=== PATIENT | female | born 1955 | race Caucasian/White ===

== ENCOUNTER → 2017-02-26 | Day surgery (SDC) | payer OTHER ==
[~2017-02-26] MED LIST: ACETAMINOPHEN/HYDROcodone 325 MG/5 MG TAB ONE; BUPIVACAINE HCL PF 0.25% 30 ML VIAL ONE; BUPIVACAINE HCL PF 0.5% 10 ML VIAL ONE; KETOROLAC TROMETHAMINE 30 MG/ML (IVP) VIAL IV PUSH ONE; LACTATED RINGER'S 1000 ML INJ 1,000 ML ONE; MIDAZOLAM HCL 2 MG/2 ML VIAL ONE; ONDANSETRON HCL 4 MG/2 ML VIAL IV PUSH ONE; PROPOFOL 200 MG/20 ML AMP IV ONE; ceFAZolin 2 GM PREMIX 50 ML ONE
--- NOTE | 2017-02-26 14:14 | RADRPT ---
EXAM DATE/TIME: 02/26/2017 12:46 [place] COMPARISON: No previous studies available for comparison. INDICATIONS : 1ST metatarsal osteotomy. MEDICAL HISTORY : Unobtainable. SURGICAL HISTORY : Unobtainable. ENCOUNTER: Initial ACUITY: 1 day PAIN SCORE: Non-responsive. LOCATION: Left foot. FINDINGS: Two view examination of the left foot demonstrates good position and alignment of the bony structures of the first metatarsal status post surgery. There are [address] screws in place. There is good alignment at the joint.. CONCLUSION: Good position and alignment on this postoperative study. Sahil Damon MD on February 26, 2017 at 14:12 Board Certified Radiologist. This report was verified electronically.
--- NOTE | 2017-02-28 08:14 | MP ---
cc: JAYSON GRIFFIN [facility] DATE OF SURGERY 02/26/2017 PREOPERATIVE DIAGNOSIS Left foot hallux abductovalgus, painful bunion POSTOPERATIVE DIAGNOSIS Left foot hallux abductovalgus, painful bunion PROCEDURES PERFORMED Left first metatarsal osteotomy with screw fixation. SPECIMEN None ESTIMATED BLOOD LOSS Less than 30 mL MATERIALS USED X2 screws [employer] cannulated Dart-Fire 1 x 3.01 x 2.5, a 3.0 was 16 mm in length and the 2.5 was 14 mm in length. SPECIMEN None ESTIMATED BLOOD LOSS 13 mL COMPLICATIONS None ANESTHESIA General with local 0.25% Marcaine plain 25 cc infiltrated at the time of surgery. DRAINS None TOURNIQUET TIME 40 minutes at a setting of 215 mmHg PLAN OF ACTIVITY PACU then DC home once stable per same-day surgery criteria. JUSTIFICATION FOR THE PROCEDURE This is a pleasant 61 old female with worsening bunion and foot pain, inability to wear normal shoe gear and exercise. She exhausted conservative measures and wished to move forward with surgical intervention. The patient was educated on the reasonable healing time, as well as risks and benefits. PROCEDURE IN DETAIL Under mild sedation, the patient was brought into the operating room, placed on the operating table in the supine position. Following the induction of general anesthesia, local anesthesia was obtained about the forefoot utilizing standard block fashion. The left foot was then scrubbed, prepped and draped in the usual aseptic fashion. The left foot was elevated, exsanguinated and the previously placed mid ankle tourniquet was inflated at 215 mmHg. A linear incision was made on the dorsal aspect of the first MPJ slightly medial to the extensor hallucis longus tendon. Sharp and blunt dissection was carried down deep to the neurovascular bundle, but superficial to the first MPJ joint capsule. The level of the first interspace was identified. A McGlamry elevator was introduced deep into the first MPJ freeing up all plantar and lateral contractures of the first MPJ. Sharp and blunt dissection was carried down to the level of the fibular suspensory ligament and the level of the lateral conjoined tendon of the first MPJ. This was then severed freeing up lateral contractures. Next, a medial L-shaped capsulotomy was performed and an offset V osteotomy was performed translating the capital fragment medially 4 mm and fixated utilizing x2 Dart-Fire [employer] screws, one being 3.0, 16 mm in length, one being 2.5, 14 mm in length. The bunion and the redundant shelf was then transected to a smooth contour. The cartilaginous surface was examined and there was noted to be minimal arthritic changes with no signs of osteochondral lesions. The wound was flushed with copious amounts normal saline. The loose redundant capsule was transected. The capsule was then repaired utilizing Vicryl. Deep dermis was closed utilizing Monocryl. Skin was closed utilizing nylon. Upon relieving the tourniquet, there is a prompt hyperemic response to all digits without any delayed capillary fill time. A bandage was placed over the wound. The patient was positioned within a controlled ankle motion boot. She was transferred from OR to PACU with all vital signs stable. Excellent capillary fill time to the digit. She is heel weight bear to tolerance with the Cam boot. She will follow up within 3-5 days. MARVA Jernigan/KYARA /1:33 PM /7:59 AM
== END | disposition home or self-care (01) ==
LOC: ESDC 10:53
PROVIDERS: ATTEND Podiatrist Foot & Ankle Surgery
DX: M20.12 Hallux valgus (acquired), left foot (principal); M21.612 Bunion of left foot
CPT/HCPCS: 01480; 28306; 73620; 76000; C1713; J0690; J1885; J2250; J2405; J3010; J7120